=== PATIENT | male | born 2000 | race Two or more races ===

== ENCOUNTER 2021-02-04 18:20 | Emergency (ER) | payer MEDICAID ==
[~2021-02-04] VITALS: Ht 182.9 cm; Wt 99.8 kg
[2021-02-05] MEDS ORDERED: ACETAMINOPHEN 325 MG TAB PO ONE (01:15)
[2021-02-05] MEDS ORDERED: LIDOCAINE 1% HCL (LOCAL ANESTH.) INJ 20ML MDV IJ ONE (03:45)
[2021-02-05 03:50] VITALS: BP 123/80
== END 2021-02-05 04:07 | disposition home or self-care (01) ==
LOC: ER 18:20
DX: S01.511A Laceration without foreign body of lip, initial encounter (principal); S02.5XXA Fracture of tooth (traumatic), initial encounter for closed fracture; X58.XXXA Exposure to other specified factors, initial encounter; Y93.89 Activity, other specified; Y92.89 Other specified places as the place of occurrence of the external cause; Y99.8 Other external cause status
CPT/HCPCS: 12011; 99283; J2001